=== PATIENT | male | born 1985 | race African-American/Black ===

== ENCOUNTER 2016-12-24 11:05 | Emergency (ER) | payer OTHER ==
[2016-12-24 11:20] VITALS: BP 121/68; PULSE 91; TEMP 99.4; BMI 32.3
[2016-12-24] MEDS ORDERED: IBUPROFEN 400 MG TABLET (FP) PO ONE ×2 (11:35→11:38)
--- NOTE | 2016-12-24 12:30 | PDOC ---
History of Present Illness - General Chief Complaint: Cold Symptoms Stated Complaint: PAIN/ JOINTS, FACE, THROAT Time Seen by Provider: 12/24/16 11:26 History Source: Patient Exam Limitations: No Limitations - History of Present Illness Initial Comments: 12/24/16 12:24 sore throat , body aches, fever x this am; no NVD Timing/Duration: reports: just prior to arrival, this morning Severity: reports: moderate Possible Cause: Yes: no prior episodes Associated Symptoms: reports: cough, nasal congestion, sore throat. denies: chest pain/soreness, wheezing Past History - Past Medical History Allergies/Adverse Reactions: Allergies Allergy/AdvReac Type Severity Reaction Status Date / Time shellfish derived Allergy Verified 12/24/16 11:17 Home Medications: Ambulatory Orders NK [No Known Home Medication] 12/24/16 Asthma: Yes - Family Disease History Family Disease History: Other: Mother - Psycho/Social/Smoking Cessation Hx Anxiety: No Suicidal Ideation: No Smoking History: Current every day smoker Have you smoked in the past 12 months: Yes Number of Cigarettes Smoked Daily: 10 Information on smoking cessation initiated: Yes 'Breaking Loose' booklet given: 12/24/16 Hx Alcohol Use: No Drug/Substance Use Hx: No Respiratory Specific PMHX - Complaint Specific PMHX Pneumonia: Yes Review of Systems - Review of Systems Constitutional: Yes: Fever, Malaise. No: Chills HEENTM: Yes: Nose Congestion. No: Throat Pain, Difficulty Swallowing Respiratory: Yes: Cough. No: Symptoms reported, Hemoptysis Cardiac (ROS): No: Symptoms Reported ABD/GI: Yes: Indigestion (on occassion, not today). No: Symptoms Reported, Nausea, Vomiting *Physical Exam - Vital Signs Last Vital Signs Temp Pulse Resp BP Pulse Ox 99.4 F 91 H 18 121/68 100 12/24/16 11:18 12/24/16 11:18 12/24/16 11:18 12/24/16 11:18 12/24/16 11:18 - Physical Exam General Appearance: Yes: Appropriately Dressed, Apparent Distress HEENT: positive: TMs Normal, Pharyngeal Erythema, Nasal Congestion, Rhinorrhea. negative: TM Bulging, TM Dull Neck: positive: Lymphadenopathy (R), Lymphadenopathy (L). negative: Tender, Rigid Respiratory/Chest: negative: Lungs Clear, Normal Breath Sounds, Labored Respiration Cardiovascular: positive: Regular Rhythm, Regular Rate Gastrointestinal/Abdominal: positive: Normal Bowel Sounds, Soft. negative: Tender, Organomegaly, Pulsatile Mass ED Treatment Course - ADDITIONAL ORDERS Additional order review: 12/24/16 11:30 Group A Strep Rapid Antigen - Final Throat - Medications Given in the ED: ED Medications Discontinued Medications Generic Name Dose Route Start Last Admin Trade Name Amrikq PRN Reason Stop Dose Admin Ibuprofen 400 mg 12/24/16 11:35 12/24/16 11:39 Motrin - PO 12/24/16 11:36 400 mg ONCE ONE Administration Medical Decision Making - Medical Decision Making 12/24/16 12:26 please avoid eating late at night before sleep; see local MD if indigesion returns; strep= negative; will treat with for flu, started today *DC/Admit/Observation/Transfer Diagnosis at time of Disposition: Influenza - Discharge Dispostion Disposition: HOME Condition at time of disposition: Stable Admit: No - Patient Instructions Additional Instructions: PLEASE TAKE ADVIL 400MG 3 TIMES DAILY X FEVER AND CHILLS; SEE LOCAL MD IF INDIGESTION RETURNS - Post Discharge Activity Work/School Note: Back to Work
== END 2016-12-24 12:40 | disposition home or self-care (01) ==
LOC: JERFT 11:05
DX: J11.1 Influenza due to unidentified influenza virus with other respiratory manifestations (principal)
CPT/HCPCS: 87070; 87077; 87430; 99281-25

== ENCOUNTER 2017-12-17 21:53 | Emergency (ER) | payer SELFPAY ==
--- NOTE | 2017-12-17 21:59 | PDOC ---
Rapid Medical Evaluation Time Seen by Provider: 12/17/17 21:57 Medical Evaluation: Allergies Allergy/AdvReac Type Severity Reaction Status Date / Time shellfish derived Allergy Verified 12/24/16 11:17 12/17/17 21:57 I have performed a brief in-person evaluation of this patient. The patient presents with a chief complaint of: sick last week but got better friday after OTC meds, today new onset cough, chest pain from cough, "feels like i can't breathe", lightheaded Pertinent physical exam findings: dry cough, lungs ctab I have ordered the following: CXR, tylenol The patient will proceed to the ED for further evaluation. Discharge Disposition - Diagnosis Cough - Referrals - Patient Instructions - Post Discharge Activity
[2017-12-17] MEDS ORDERED: ACETAMINOPHEN 325 MG TABLET (FP) PO ONE (22:01)
[2017-12-17 22:03] VITALS: BP 115/82; TEMP 99.9; BMI 35.9
[2017-12-17] MEDS ORDERED: ACETAMINOPHEN 325 MG TABLET (FP) ONE (23:40)
[2017-12-18] MEDS ORDERED: AZITHROMYCIN 250 MG TABLET PO ONE (00:31)
[2017-12-18] MEDS ORDERED: ALBUTEROL SO4 2.5/IPRATROPIUM 0.5 INH SOL 3 ML VIAL.NEB. NEB ONE ×2 (00:31→00:43)
[2017-12-18] MEDS ORDERED: predniSONE 20 MG TABLET (UD) PO ONE (00:31)
--- NOTE | 2017-12-18 00:32 | PDOC ---
History of Present Illness - General Chief Complaint: Cold Symptoms Stated Complaint: COLD SYMPTOMS Time Seen by Provider: 12/17/17 21:57 History Source: Patient - History of Present Illness Initial Comments: 12/18/17 01:07 31 year old male with cough, chest congestion x 1 day with low grade temperatures at home. denies sick contact. + influenza vaccine this season. denies chest pain, NVD, abdominal pain, urinary symptoms. Past History - Past Medical History Allergies/Adverse Reactions: Allergies Allergy/AdvReac Type Severity Reaction Status Date / Time shellfish derived Allergy Verified 12/17/17 22:00 Home Medications: Ambulatory Orders Albuterol 0.083% Nebulizer Pati [Ventolin 0.083% Nebulizer Soln -] 1 neb NEB Q4H PRN #50 vial 12/18/17 Azithromycin 250 mg PO DAILY #4 tablet 12/18/17 predniSONE [Deltasone -] 40 mg PO DAILY #8 tablet 12/18/17 Asthma: Yes COPD: Yes - Family Disease History Family Disease History: Other: Mother - Suicide/Smoking/Psychosocial Hx Smoking History: Never smoked Have you smoked in the past 12 months: Yes Number of Cigarettes Smoked Daily: 10 Information on smoking cessation initiated: No 'Breaking Loose' booklet given: 12/24/16 Hx Alcohol Use: No Drug/Substance Use Hx: No Substance Use Type: None Respiratory Specific PMHX - Complaint Specific PMHX Pneumonia: Yes Review of Systems - Review of Systems Able to Perform ROS?: Yes Is the patient limited Nigerian proficient: No Constitutional: Yes: Fever Respiratory: Yes: Cough, Productive cough *Physical Exam - Vital Signs Last Vital Signs Temp Pulse Resp BP Pulse Ox 99.9 F H 107 H 20 115/82 99 12/17/17 22:00 12/17/17 22:00 12/17/17 22:00 12/17/17 22:00 12/17/17 22:00 - Physical Exam General Appearance: Yes: Appropriately Dressed Respiratory/Chest: positive: Rhonchi, Other (coarse breath sounds) Cardiovascular: positive: Regular Rhythm, Tachycardia Gastrointestinal/Abdominal: positive: Normal Bowel Sounds, Soft Extremity: positive: Normal Capillary Refill, Normal Inspection, Normal Range of Motion ED Treatment Course - Medications Given in the ED: ED Medications Discontinued Medications Generic Name Dose Route Start Last Admin Trade Name Freq PRN Reason Stop Dose Admin Acetaminophen 650 mg 12/17/17 22:01 12/17/17 23:48 Tylenol - PO 12/17/17 22:02 650 mg ONCE ONE Administration *DC/Admit/Observation/Transfer Diagnosis at time of Disposition: Cough, Bronchitis Asthma exacerbation Qualifiers: Asthma severity: mild Asthma persistence: intermittent Qualified Code(s): J45.21 - Mild intermittent asthma with (acute) exacerbation - Discharge Dispostion Disposition: HOME - Prescriptions Prescriptions: Albuterol 0.083% Nebulizer Pati [Ventolin 0.083% Nebulizer Soln -] 1 neb NEB Q4H PRN #50 vial PRN Reason: Asthma Azithromycin 250 mg PO DAILY #4 tablet predniSONE [Deltasone -] 40 mg PO DAILY #8 tablet - Referrals - Patient Instructions Printed Discharge Instructions: DI for Acute Bronchitis Additional Instructions: avoid smoking cigarettes drink plenty of fluids use medications as prescribed, azithromycin and prednisone start 12/19/2017. your first dose was given in the ER. use albuterol every 4 hours as needed for cough. follow up with your doctor as soon as possible. return to the ER if symptoms worsen. - Post Discharge Activity Forms/Work/School Notes: Back to Work
[2017-12-18] MEDS ORDERED: AZITHROMYCIN 250 MG TABLET ONE (00:43)
[2017-12-18] MEDS ORDERED: predniSONE 20 MG TABLET (UD) ONE (00:43)
[2017-12-18 01:27] VITALS: PULSE 95
== END 2017-12-18 01:31 | disposition home or self-care (01) ==
LOC: JERFT 21:53 → JER 21:53
PROC: 3E0F7GC Introduction of Other Therapeutic Substance into Respiratory Tract, Via Natural or Artificial Opening (ICD-10-PCS; principal; 2017-12-17)
DX: J45.21 Mild intermittent asthma with (acute) exacerbation (principal)
CPT/HCPCS: 71046-TC-FY; 99282-25

== ENCOUNTER 2018-02-17 15:21 | Emergency (ER) | payer OTHER ==
[2018-02-17 15:56] VITALS: BP 129/74; PULSE 108; TEMP 98.6; BMI 35.9
--- NOTE | 2018-02-17 15:57 | PDOC ---
Rapid Medical Evaluation Time Seen by Provider: 02/17/18 15:52 Medical Evaluation: Allergies Allergy/AdvReac Type Severity Reaction Status Date / Time shellfish derived Allergy Verified 02/17/18 15:51 02/17/18 15:52 Pt c/o: right 2nd toe pain x 3 days worse with standing , denies injury or new footwear, denies gout Pt on brief exam: tender to rt 2nd toe proximal phalange. no erythema or increased warmth, no wound/lesion. Mild edema noted Pt ordred for : toe xray Pt to proceed to the emergency department Discharge Disposition - Diagnosis Toe pain, right - Referrals - Patient Instructions - Post Discharge Activity
--- NOTE | 2018-02-17 16:11 | PDOC ---
History of Present Illness - General Chief Complaint: Pain Stated Complaint: ABSCESS/ RT TOE Time Seen by Provider: 02/17/18 15:52 History Source: Patient Exam Limitations: No Limitations Past History - Travel Traveled outside of the country in the last 30 days: No Close contact w/someone who was outside of country & ill: No - Past Medical History Allergies/Adverse Reactions: Allergies Allergy/AdvReac Type Severity Reaction Status Date / Time shellfish derived Allergy Verified 02/17/18 15:51 Home Medications: Ambulatory Orders Cephalexin Monohydrate [Keflex -] 500 mg PO BID #14 capsule 02/17/18 Sulfamethoxazole/Trimethoprim [Bactrim Ds -] 1 tab PO BID #14 tablet 02/17/18 Asthma: Yes COPD: No - Family Disease History Family Disease History: Other: Mother - Suicide/Smoking/Psychosocial Hx Smoking History: Never smoked Have you smoked in the past 12 months: Yes Number of Cigarettes Smoked Daily: 20 Information on smoking cessation initiated: No 'Breaking Loose' booklet given: 12/24/16 Hx Alcohol Use: No Drug/Substance Use Hx: No Substance Use Type: None Review of Systems - Review of Systems Able to Perform ROS?: Yes Comments:: 02/17/18 16:10 CONSTITUTIONAL: Absent: fever, chills, diaphoresis, generalized weakness, malaise, loss of appetite HEENT: Absent: rhinorrhea, nasal congestion, throat pain, throat swelling, difficulty swallowing, mouth swelling, ear pain, eye pain, visual Changes CARDIOVASCULAR: Absent: chest pain, loss of consciousness, palpitations, irregular heart rate, peripheral edema RESPIRATORY: Absent: cough, shortness of breath, dyspnea with exertion, orthopnea, wheezing, stridor, hemoptysis GASTROINTESTINAL: Absent: abdominal pain, abdominal distension, nausea, vomiting, diarrhea, constipation, melena, hematochezia GENITOURINARY: Absent: dysuria, frequency, urgency, hesitancy, hematuria, flank pain, genital pain MUSCULOSKELETAL: Absent: myalgia, arthralgia, joint swelling SKIN: Absent: rash, itching, pallor HEMATOLOGIC/IMMUNOLOGIC: Absent: easy bleeding, easy bruising, lymphadenopathy, frequent infections ENDOCRINE: Absent: unexplained weight gain, unexplained weight loss, heat intolerance, cold intolerance NEUROLOGIC: Absent: headache, focal weakness or paresthesias, dizziness, unsteady gait, seizure, mental status changes, bladder or bowel incontinence PSYCHIATRIC: Absent: anxiety, depression, suicidal or homicidal ideation, hallucinations. Is the patient limited Amharic proficient: No *Physical Exam - Vital Signs Last Vital Signs Temp Pulse Resp BP Pulse Ox 98.6 F 108 H 19 129/74 99 02/17/18 15:52 02/17/18 15:52 02/17/18 15:52 02/17/18 15:52 02/17/18 15:52 - Physical Exam Comments: 02/17/18 16:10 GENERAL: Well developed, well nourished. Awake and alert. No acute distress. HEENT: Normocephalic, atraumatic. PERRLA, EOMI. No conjunctival pallor. Sclera are non- icteric. Moist mucous membranes. Oropharynx is clear. NECK: Supple. Full ROM. No JVD. Carotid pulses 2+ and symmetric, without bruits. No thyromegaly. No lymphadenopathy. CARDIOVASCULAR: Regular rate and rhythm. No murmurs, rubs, or gallops. Distal pulses are 2+ and symmetric. PULMONARY: No evidence of respiratory distress. Lungs clear to auscultation bilaterally. No wheezing, rales or rhonchi. ABDOMINAL: Soft. Non-tender. Non-distended. No rebound or guarding. No organomegaly. Normoactive bowel sounds. MUSCULOSKELETAL Normal range of motion at all joints. No bony deformities or tenderness. No CVA tenderness. EXTREMITIES: No cyanosis. No clubbing. No edema. No calf tenderness. SKIN: Warm and dry. Normal capillary refill. No rashes. No jaundice. NEUROLOGICAL: Alert, awake, appropriate. Cranial nerves 2-12 intact. No deficits to light touch and temperature in face, upper extremities and lower extremities. No motor deficits in the in face, upper extremities and lower extremities. Normoreflexic in the upper and lower extremities. Normal speech. Toes are down- going bilaterally. Gait is normal without ataxia. PSYCHIATRIC: Cooperative. Good eye contact. Appropriate mood and affect. *DC/Admit/Observation/Transfer Diagnosis at time of Disposition: Toe pain, right Cellulitis Qualifiers: Site of cellulitis: extremity Site of cellulitis of extremity: toe Laterality: right Qualified Code(s): L03.031 - Cellulitis of right toe - Discharge Dispostion Disposition: HOME Condition at time of disposition: Stable Admit: No - Referrals Referrals: Jesus Caban MD [Staff Physician] - - Patient Instructions Printed Discharge Instructions: DI for Cellulitis -- Adult, DI for Athlete's Foot Additional Instructions: You have cellulitis. This is a skin infection. Your uric acid lever was at the upper level of normal. Please take the Bactrim and Keflex twice a day for one week. Please take all the antibiotics even if you feel better. Keep the foot dry and use powder to help with the foot fungus. Rotate your work shoes. Please avoid shaving the skin around the area of redness. You may take Tylenol or Motrin as needed for pain. Please follow up with your primary care doctor in 1 week. A podietry referral has also been given to you. Return to the emergency department if you have worsening redness, fevers, increasing pain, or have any changes in your symptoms. - Post Discharge Activity Forms/Work/School Notes: Back to Work
[2018-02-17] MEDS ORDERED: IBUPROFEN 400 MG TABLET (FP) PO ONE ×2 (16:39→16:46)
== END 2018-02-17 18:16 | disposition home or self-care (01) ==
LOC: JERFT 15:21
DX: L03.031 Cellulitis of right toe (principal); J45.909 Unspecified asthma, uncomplicated
CPT/HCPCS: 36415; 73660-TC-FY; 84550; 99281-25

== ENCOUNTER 2019-02-14 21:35 | Emergency (ER) | payer OTHER ==
[2019-02-14 21:43] VITALS: BP 119/68; PULSE 94; TEMP 98; BMI 36.3
--- NOTE | 2019-02-14 21:55 | PDOC ---
History of Present Illness - General History Source: Patient Exam Limitations: No Limitations - History of Present Illness Initial Comments: 33 yo m w a pmh of asthma, PNA, bronchitis, significant smoking history presents to the ER with a bad cough for the past 2 weeks. He states he was recently diagnosed with bronchitis two weeks ago, prescribed a Z-pack but could not pick it up bc it was too expensive. 2 days ago he managed to get the Z pack and started taking the azithromycin. He has now taken it for two days. He denies fevers but endorses a cough productive of greenish/yellow sputum as well as body sweats and chills. He states he is occasionally short of breath but does not feel like he has been wheezing or having an asthma exacerbation. The patient used to smoke 2 PPD but now only smokes 4 cigarettes per day. When asked if he smokes marijuana he replied "I plead the 5th." He came into the ER bc he feels like his cough is getting worse and wants medications to make it feel better. PCP: Ariel Lu - [phone] PSH: None reported Social Hx: smokes 4 cigs/day used to smoke 2 PPD. "pleads the 5th" when asked about marijuana. Drinks at least once a week recreationally. Denies other illicit drug usage. Allergies: Shellfish. <Noam España - Last Filed: 02/14/19 23:26> <Aliica Prado - Last Filed: 02/15/19 00:17> - General Chief Complaint: Respiratory Stated Complaint: COUGH Time Seen by Provider: 02/14/19 21:55 Past History - Past Medical History Asthma: Yes COPD: No - Family Disease History Family Disease History: Other: Mother - Suicide/Smoking/Psychosocial Hx Smoking History: Never smoked Have you smoked in the past 12 months: No Number of Cigarettes Smoked Daily: 20 Information on smoking cessation initiated: No 'Breaking Loose' booklet given: 12/24/16 Hx Alcohol Use: No Drug/Substance Use Hx: No Substance Use Type: None <Noam España - Last Filed: 02/14/19 23:26> <Alicia Prado - Last Filed: 02/15/19 00:17> - Past Medical History Allergies/Adverse Reactions: Allergies Allergy/AdvReac Type Severity Reaction Status Date / Time shellfish derived Allergy Verified 02/14/19 21:43 Home Medications: Ambulatory Orders NK [No Known Home Medication] 02/14/19 Review of Systems - Review of Systems Able to Perform ROS?: Yes Comments:: CONSTITUTIONAL: Present: chills, sweats Absent: fever, no fatigue EYES: Absent: visual changes ENT: Absent: ear pain, no sore throat CARDIOVASCULAR: Present: Chest pain Absent: no palpitations RESPIRATORY: Present: cough, SOB GI: Absent: abdominal pain, no nausea, no vomiting, no constipation, no diarrhea GENITOURINARY: Absent: dysuria, no frequency, no hematuria MUSKULOSKELETAL: Absent: back pain, no arthralgia, no myalgia SKIN: Absent: rash NEURO: Absent: headache <Noam España - Last Filed: 02/14/19 23:26> *Physical Exam - Vital Signs Last Vital Signs Temp Pulse Resp BP Pulse Ox 98.0 F 94 H 16 119/68 100 02/14/19 21:42 02/14/19 21:42 02/14/19 21:42 02/14/19 21:42 02/14/19 21:42 - Physical Exam Comments: GENERAL: Well-appearing, well-nourished. Mild distress secondary to strong cough. HEENT: Normocephalic, atraumatic. PERRL, EOM intact. CARDIOVASCULAR: Normal S1, S2. Regular rate and rhythm. PULMONARY: Minimal evidence of respiratory distress. Lungs clear to auscultation bilaterally. No wheezing, rales or rhonchi. ABDOMEN: Soft, non-distended, non-tender. EXTREMITIES: Normal ROM in all four extremities. No gross deformities. SKIN: Warm, dry. No rash NEUROLOGICAL: No focal neurological deficits. <Noam España - Last Filed: 02/14/19 23:26> - Vital Signs Last Vital Signs Temp Pulse Resp BP Pulse Ox 98.0 F 94 H 16 119/68 100 02/14/19 21:42 02/14/19 21:42 02/14/19 21:42 02/14/19 21:42 02/14/19 21:42 <Alicia Prado - Last Filed: 02/15/19 00:17> Heart Score/ECG Review - [place]: Normal - ST and T Early Repolarization: No Non Specific ST-T Wave changes: No Flattened T Waves: No Prolonged Q-T Interval: No - ECG Impressions Normal ECG: Yes Non-specific ST Elevation: No Ischemic Changes: No Torsades mary Pointes: No WPW: No <Alicia Prado - Last Filed: 02/15/19 00:17> ED Treatment Course - LABORATORY CBC & Chemistry Diagram: 02/14/19 22:10 02/14/19 22:10 <Noam España - Last Filed: 02/14/19 23:26> - LABORATORY CBC & Chemistry Diagram: 02/14/19 22:10 02/14/19 22:10 - ADDITIONAL ORDERS Additional order review: 02/14/19 22:10 RBC 5.67 H MCV 71.6 L MCHC 32.4 RDW 15.3 MPV 7.8 Neutrophils % 46.0 Lymphocytes % 38.9 Monocytes % 9.6 Eosinophils % 4.9 H Basophils % 0.6 - Medications Given in the ED: ED Medications Discontinued Medications Generic Name Dose Route Start Last Admin Trade Name Tesfaye PRN Reason Stop Dose Admin Albuterol/Ipratropium 2 amp 02/14/19 22:00 02/14/19 22:31 Duoneb - NEB 02/14/19 22:01 2 amp ONCE ONE Administration Guaifenesin/Codeine Phosphate 10 ml 02/14/19 22:02 02/14/19 22:31 Robitussin Ac - PO 02/14/19 22:03 10 ml ONCE ONE Administration <Alicia Prado - Last Filed: 02/15/19 00:17> Medical Decision Making - Medical Decision Making 33 yo m w a pmh of asthma, PNA, bronchitis, significant smoking history presents to the ER with a bad cough for the past 2 weeks. He states he was recently diagnosed with bronchitis two weeks ago, prescribed a Z-pack but could not pick it up bc it was too expensive. 2 days ago he managed to get the Z pack and started taking the azithromycin. He has now taken it for two days. He denies fevers but endorses a cough productive of greenish/yellow sputum as well as body sweats and chills. He states he is occasionally short of breath but does not feel like he has been wheezing or having an asthma exacerbation. The patient used to smoke 2 PPD but now only smokes 4 cigarettes per day. When asked if he smokes marijuana he replied "I plead the 5th." He came into the ER bc he feels like his cough is getting worse and wants medications to make it feel better. VS: hr - 94, otherwise WNL. DDx IBNLT: URI, bronchitis, PNA, pneumothorax, ACS/[place], electrolyte/metabolic disturbance. Plan: Labs, ekg, cxr, robitussin, duoneb, decadron, IV hydration, re-assess. EKG: NS Labs: Unremarkable CXR: Normal Patient feels better after meds and requests DC. - Will give IV abx here in the ED and DC patient with instructions to finish his azithro course. <Noam España - Last Filed: 02/14/19 23:26> *DC/Admit/Observation/Transfer - Discharge Dispostion Decision to Admit order: No <Noam España - Last Filed: 02/14/19 23:26> <Alicia Prado - Last Filed: 02/15/19 00:17> Diagnosis at time of Disposition: Cough, Bronchitis - Discharge Dispostion Disposition: HOME Condition at time of disposition: Improved - Referrals Referrals: ON STAFF,NOT [Primary Care Provider] - - Patient Instructions Printed Discharge Instructions: Cough (Alternative Therapy), Cough Additional Instructions: You came into the ER with a cough. We gave you some meds which made you feel better. Make sure to take 500 mg of azithromycin every day. Please make sure to call your primary care doctor and schedule an appointment in the next 3 to 5 days. Come back to the ER if your pain worsens or you have any other new or worsening concerns. Thank you for coming to the [facility] ER. We hope you feel better soon! Print Language: SAUDI ARABIAN - Post Discharge Activity Forms/Work/School Notes: Back to Work
[2019-02-14] MEDS ORDERED: SODIUM CHLORIDE 1,000 ML IV STA (22:00)
[2019-02-14] MEDS ORDERED: ALBUTEROL SO4 2.5/IPRATROPIUM 0.5 INH SOL 3 ML VIAL.NEB. NEB ONE ×2 (22:00→22:21)
[2019-02-14] MEDS ORDERED: guaiFENesin/CODEINE 10 ML UNIT-DOSE CUPS PO ONE (22:02)
[2019-02-14 22:18] LABS: BASO % 0.6 % (0-2.0); EOS % 4.9 % (0-4.5); HEMATOCRIT 40.6 % (35.4-49); HEMOGLOBIN 13.2 GM/dL (11.7-16.9); LYMPH % 38.9 % (8-40); MCH 23.2 pg (25.7-33.7); MCHC 32.4 g/dl (32.0-35.9); MEAN CELL VOLUME 71.6 fl (80-96); MEAN PLT VOLUME 7.8 fl (7.5-11.1); MONO % 9.6 % (3.8-10.2); PLATELET COUNT 257 K/MM3 (134-434); RBC 5.67 M/mm3 (4.00-5.60); RDW 15.3 % (11.9-15.9)
[2019-02-14] MEDS ORDERED: guaiFENesin/CODEINE 5 ML UNIT-DOSE CUPS PO ONE (22:22)
[2019-02-14] MEDS ORDERED: DEXAMETHASONE LIQUID 0.5 MG/5 ML 240 ML BULK BOTTLE PO ONE (22:25)
[2019-02-14 22:46] LABS: ALBUMIN 3.7 g/dl (3.4-5.0); ALK PHOS 90 U/L (45-117); ANION GAP 7 MMOL/L (8-16); BILIRUBIN,TOTAL 0.3 mg/dL (0.2-1); BLOOD UREA NITROGEN 16 mg/dL (7-18); CALCIUM 8.6 mg/dL (8.5-10.1); CHLORIDE 104 mmol/L (98-107); CO2 26 mmol/L (21-32); GLUCOSE,RANDOM 131 mg/dL (74-106); LIPASE 213 U/L (73-393); POTASSIUM 3.8 mmol/L (3.5-5.1); SGOT/AST 35 U/L (15-37); SGPT/ALT 51 U/L (13-61); SODIUM 137 mmol/L (136-145); TOT PROT 7.7 g/dl (6.4-8.2)
[2019-02-14] MEDS ORDERED: AZITHROMYCIN IVPB 500 MG in DEXTROSE 5%-WATER - 250 ML IVPB ONE (22:59)
[2019-02-14] MEDS ORDERED: CEFTRIAXONE 1 GM in DEXTROSE 5%-WATER - 50 ML IVPB ONE (22:59)
[2019-02-14] MEDS ORDERED: DEXAMETHASONE 4 MG TABLET (FP) PO ONE (23:00)
[2019-02-14] MEDS ORDERED: AZITHROMYCIN IVPB 500 MG/250 ML BAG IVPB ONE (23:02)
[2019-02-14] MEDS ORDERED: CEFTRIAXONE 1 GM/50 ML BAG ONE (23:02)
--- NOTE | 2019-02-14 23:09 | PDOC ---
Attending Attestation - Resident Resident Name: Noam España - ED Attending Attestation I have performed the following: I have examined & evaluated the patient, The case was reviewed & discussed with the resident, I agree w/resident's findings & plan - Medical Decision Making 02/14/19 23:06 Pt was at [facility] ER yesterday and CXR was normal. Given a z patito. He took 1 250mg pill yesterday and 1 today. He is still couhging. Pt is a smoker. He cannot recall the last time that he was on steroids for asthma. It has been years. Pt will be treated with IV zithromax and IV ceftriaxone here and he will be asked to take 500mg zithromax tomorrow and 500mg on Friday (thus completing a "tripak") Pt will be given decadron PO here and he will be discharged 02/14/19 23:11 CXR is normal; clear lungs bilat <Alicia Prado - Last Filed: 02/14/19 23:11> - HPI HPI: 02/14/19 23:10 The patient is a 33 year old male with a past medical history of asthma, pneumonia, and bronchitis here today for evaluation of worsening cough. The patient reports that he went to a clinic and was prescribed a z-pack but was unable to start the z-pack until yesterday. He notes that his cough began to worsen and came in today for further evaluation. Patient denies headache, lightheadedness. Denies fever, chills. Denies chest pain, shortness of breath. Denies nausea, vomiting, diarrhea, abdominal pain. Allergies: shellfish derived Social history: Patient confirms tobacco use (4 cigarettes a day, used to be 2 packs a day) - Physicial Exam PE: 02/14/19 23:13 ADULT EXAM GENERAL: Awake, alert, and fully oriented, in no acute distress (+) obese HEAD: No signs of trauma EYES: PERRLA, EOMI, sclera anicteric, conjunctiva clear ENT: Auricles normal inspection, hearing grossly normal, nares patent, oropharynx clear without exudates. Moist mucosa NECK: Normal ROM, supple, no lymphadenopathy, JVD, or masses LUNGS: Breath sounds equal, clear to auscultation bilaterally. No wheezes, and no crackles HEART: Regular rate and rhythm, normal S1 and S2, no murmurs, rubs or gallops ABDOMEN: Soft, nontender, normoactive bowel sounds. No guarding, no rebound. No masses EXTREMITIES: Normal range of motion, no edema. No clubbing or cyanosis. No cords , erythema, or tenderness NEUROLOGICAL: Cranial nerves II through XII grossly intact. Normal speech, normal gait SKIN: Warm, Dry, normal turgor, no rashes or lesions noted. <Ariadna Stone - Last Filed: 02/14/19 23:14>
--- NOTE | 2019-02-15 10:27 | EKG ---
Test Reason : Blood Pressure : / mmHG Vent. Rate : 086 BPM Atrial Rate : 086 BPM P-R Int : 152 ms QRS Dur : 084 ms QT Int : 352 ms P-R-T Axes : -08 026 022 degrees QTc Int : 421 ms NORMAL SINUS RHYTHM WITH SINUS ARRHYTHMIA NORMAL ECG NO PREVIOUS ECGS AVAILABLE Confirmed by LARISSA CLARKE MD ([id number]) on 02/15/2019 10:27:00 AM Referred By: Confirmed By:LARISSA CLARKE MD
== END 2019-02-15 00:50 | disposition home or self-care (01) ==
LOC: JER 21:35
PROC: 3E0F7GC Introduction of Other Therapeutic Substance into Respiratory Tract, Via Natural or Artificial Opening (ICD-10-PCS; principal; 2019-02-14)
PROC: 3E0337Z Introduction of Electrolytic and Water Balance Substance into Peripheral Vein, Percutaneous Approach (ICD-10-PCS; 2019-02-14)
PROC: 3E03329 Introduction of Other Anti-infective into Peripheral Vein, Percutaneous Approach (ICD-10-PCS; 2019-02-14)
PROC: 3E03329 Introduction of Other Anti-infective into Peripheral Vein, Percutaneous Approach (ICD-10-PCS; 2019-02-14)
DX: J40 Bronchitis, not specified as acute or chronic (principal); Z87.09 Personal history of other diseases of the respiratory system
CPT/HCPCS: 36415; 71046-TC-FY; 80053; 83690; 84484; 85025; 93005; 93010; 94640; 96361; 96365; 96367; 99281-25; J7030

== ENCOUNTER 2019-07-08 21:09 | Emergency (ER) | payer OTHER ==
--- NOTE | 2019-07-08 21:12 | PDOC ---
Rapid Medical Evaluation Time Seen by Provider: 07/08/19 21:10 Medical Evaluation: Allergies Allergy/AdvReac Type Severity Reaction Status Date / Time shellfish derived Allergy Verified 02/14/19 21:43 07/08/19 21:10 I have performed a brief in-person evaluation of this patient. The patient presents with a chief complaint of: coughing and SOB x weeks Pertinent physical exam findings: Speaking full sentences. Lungs CTAB. I have ordered the following: nothing The patient will proceed to the ED for further evaluation. Discharge Disposition - Diagnosis Cough - Referrals - Patient Instructions - Post Discharge Activity
[2019-07-08 21:15] VITALS: BP 130/70; PULSE 77; TEMP 98.2; BMI 35.5
[2019-07-08] MEDS: ALBUTEROL SO4 2.5/IPRATROPIUM 0.5 INH SOL 3 ML VIAL.NEB. NEB SCH ×3 (21:20→21:46)
[2019-07-08] MEDS ORDERED: ALBUTEROL SO4 2.5/IPRATROPIUM 0.5 INH SOL 3 ML VIAL.NEB. NEB ONE (21:20)
[2019-07-08] MEDS ORDERED: predniSONE 20 MG TABLET (UD) PO ONE (21:23)
[2019-07-08] MEDS ORDERED: predniSONE 20 MG TABLET (UD) ONE (21:24)
--- NOTE | 2019-07-08 21:50 | PDOC ---
History of Present Illness - General Chief Complaint: Cold Symptoms Stated Complaint: COUGH/EARACHE Time Seen by Provider: 07/08/19 21:10 History Source: Patient - History of Present Illness Initial Comments: 07/08/19 21:42 Chief complaint: Asthma Patient is a 33-year-old male with a history of asthma, not hospitalized since he was a child is complaining of shortness of breath, no fever. Patient states that this is been going on and off for a week. Patient states the last time was several months ago, he's been taking Claritin for his ALLERGIES but it doesn't seem to be working. Patient is also a smoker. GENERAL/CONSTITUTIONAL: No fever, weakness. dizziness HEAD, EYES, EARS, NOSE AND THROAT: No change in vision. No ear pain or discharge. No sore throat. CARDIOVASCULAR: No chest pain RESPIRATORY: +shortness of breath, +cough GASTROINTESTINAL: No pain, nausea, vomiting, diarrhea or constipation GENITOURINARY: No dysuria MUSCULOSKELETAL: No neck or back pain SKIN: No rash NEUROLOGIC: No headache, vertigo, loss of consciousness, or loss of sensation. GENERAL: The patient is awake, alert, and fully oriented, in no acute distress. HEAD: Normal with no signs of trauma. EYES: Pupils equal, round and reactive to light, sclera anicteric, conjunctiva clear. ENT: pharynx: no erythema, no exudate, uvula midline NECK: supple CHEST: Bilateral wheezing, nontender, rr ABD: soft, nontender BACK: no tenderness or signs of injury EXTREMITIES: Normal range of motion, no edema. NEUROLOGICAL: Normal speech, normal gait. SKIN: Warm, Dry Past History - Past Medical History Allergies/Adverse Reactions: Allergies Allergy/AdvReac Type Severity Reaction Status Date / Time shellfish derived Allergy Verified 07/08/19 21:11 Home Medications: Ambulatory Orders Albuterol Sulfate [Albuterol Sulfate Hfa] 8.5 gm IH Q4H PRN #1 [email or web address] Prednisone [Deltasone] 40 mg PO DAILY #8 tablet 07/08/19 Asthma: Yes COPD: No - Family Disease History Family Disease History: Other: Mother - Suicide/Smoking/Psychosocial Hx Smoking History: Current every day smoker Have you smoked in the past 12 months: Yes Number of Cigarettes Smoked Daily: 5 Information on smoking cessation initiated: Yes 'Breaking Loose' booklet given: 12/24/16 Hx Alcohol Use: No Drug/Substance Use Hx: Yes Substance Use Type: None *Physical Exam - Vital Signs Last Vital Signs Temp Pulse Resp BP Pulse Ox 98.2 F 77 18 130/70 96 07/08/19 21:11 07/08/19 21:11 07/08/19 21:11 07/08/19 21:11 07/08/19 21:11 ED Treatment Course - Medications Given in the ED: ED Medications Discontinued Medications Generic Name Dose Route Start Last Admin Trade Name Tesfaye PRN Reason Stop Dose Admin Prednisone 40 mg 07/08/19 21:23 07/08/19 21:33 Deltasone - PO 07/08/19 21:24 40 mg ONCE ONE Administration Medical Decision Making - Medical Decision Making 07/08/19 21:45 33-year-old male with history of asthma , on and off wheezing for a week, not taking meds. Mildly dyspneic, not hypoxic, no fever and otherwise appears well. Patient will be given DuoNeb, prednisone, reassess Patient feels better after one treatment, no wheezing, patient would like to go home. We'll send prescriptions. Patient will follow-up with his own doctor. Patient was encouraged to stop smoking. Discussed issues, findings, results, applicable medications and treatments and follow-up. All these were understood and all questions were answered *DC/Admit/Observation/Transfer Diagnosis at time of Disposition: Asthma Qualifiers: Asthma severity: moderate Asthma persistence: unspecified Asthma complication type: with acute exacerbation Qualified Code(s): J45.901 - Unspecified asthma with (acute) exacerbation - Discharge Dispostion Disposition: HOME Condition at time of disposition: Stable Decision to Admit order: No - Prescriptions Prescriptions: Albuterol Sulfate [Albuterol Sulfate Hfa] 8.5 gm IH Q4H PRN #1 [email or web address] PRN Reason: Wheezing Prednisone [Deltasone] 40 mg PO DAILY #8 tablet - Referrals - Patient Instructions Printed Discharge Instructions: DI for Asthma -- Adult Additional Instructions: Use albuterol inhaler, 2 puffs every 4 hours as needed for wheezing. Take prednisone 40 mg once daily until finished. Return to the ER if fever, shortness of breath or getting sicker. Otherwise follow-up with your doctor in one to 2 days do not smoke - Post Discharge Activity
== END 2019-07-08 21:52 | disposition home or self-care (01) ==
LOC: JERFT 21:09
DX: J45.901 Unspecified asthma with (acute) exacerbation (principal); F17.210 Nicotine dependence, cigarettes, uncomplicated
CPT/HCPCS: 99282-25